=== PATIENT | female | born 1985 | race Caucasian/White ===

== ENCOUNTER 2017-08-12 16:55 | Emergency (ER) | payer MEDICAID ==
[~2017-08-12] VITALS: Ht 167.6 cm; Wt 61.5 kg
[2017-08-12 16:56] VITALS: BP 123/81
[2017-08-12 18:15] LABS: RAPID INFLUENZA A Negative (Negative); RAPID INFLUENZA B Negative (Negative)
== END 2017-08-12 18:54 | disposition home or self-care (01) ==
LOC: ED 18:49
DX: J02.0 Streptococcal pharyngitis (principal)
CPT/HCPCS: 71046; 87081; 87147; 87400; 87880; 99285